=== PATIENT | female | born 1965 | race Two or more races ===

== ENCOUNTER 2022-10-25 03:12 | Inpatient (IN) | payer OTHER ==
[2022-10-25] MEDS ORDERED: Ondansetron 4 MG/2 ML SDV IVPUSH SCH (03:30)
[2022-10-25] MEDS ORDERED: Ondansetron 4 MG/2 ML SDV IVPUSH PRN (04:05)
[2022-10-25] MEDS: fentaNYL 50 MCG/ML SDV IVPUSH PRN ×6 (04:39→19:20)
[2022-10-25] MEDS: Dextrose 5%-Lactated Ringers 1,000 ML IV SCH ×2 (07:18→22:26)
[2022-10-25] MEDS: diphenhydrAMINE 50 MG/ML SDV IVPUSH PRN ×2 (07:22→19:19)
[2022-10-25] MEDS: Verapamil 120 MG Tab.ER PO SCH (11:10)
[2022-10-25] MEDS: Formoterol/Mometasone 200-5 MCG 8.8 GM Inhaler IH SCH ×2 (11:11→20:23)
[2022-10-25] MEDS: Lisinopril 10 MG Tab PO SCH (11:11)
[2022-10-25] MEDS: Pantoprazole 40 MG Vial IV SCH (11:11)
[2022-10-25] MEDS: Venlafaxine 75 MG Cap.ER PO SCH (11:11)
[2022-10-25] MEDS: MVI, Adult with Vitamin K 10 ML, Zinc/Copper/Manganese/Selenium 1 ML in Dextrose 5%-Lac... IV SCH ×3 (11:15)
[2022-10-25] MEDS: buPROPion 150 MG Tab.ER PO SCH (11:15)
[2022-10-25 11:49] LABS: ESTIMATED GFR 105 mL/min (>60)
[2022-10-25] MEDS ORDERED: Nystatin Topical Powder 15 GM Bottle TOP SCH (12:15)
[2022-10-25] MEDS ORDERED: Sodium Ferric Gluconate Cmplex 250 MG in Sodium Chloride 0.9% 100 ML IV ONE (13:30)
[2022-10-25] MEDS: Nystatin Topical Powder 15 GM Bottle TOP SCH (20:25)
[2022-10-25] MEDS: traZODone 50 MG Tab PO SCH (20:26)
[2022-10-25] MEDS: Gabapentin 300 MG Cap PO SCH (20:26)
[2022-10-25] MEDS: Montelukast 10 MG Tab PO SCH (20:26)
[2022-10-25] MEDS: carBAMazepine 200 MG Tab PO SCH (20:26)
[2022-10-25] MEDS ORDERED: buPROPion 150 MG Tab.ER PO SCH (21:00)
[2022-10-26] MEDS: fentaNYL 50 MCG/ML SDV IVPUSH PRN ×2 (02:17→07:19)
[2022-10-26] MEDS: Dextrose 5%-Lactated Ringers 1,000 ML IV SCH (06:28)
[2022-10-26] MEDS ORDERED: Glycopyrrolate 0.2 MG/ML 2 ML SDV IVPUSH ONE ×2 (07:00→09:15)
[2022-10-26] MEDS ORDERED: Midazolam 1 MG/ML 2 ML SDV ONE (07:55)
[2022-10-26] MEDS ORDERED: Propofol 200 MG/20 ML SDV ONE (07:55)
[2022-10-26] MEDS ORDERED: fentaNYL 50 MCG/ML SDV ONE (07:55)
[2022-10-26] MEDS: Pantoprazole 40 MG Vial IV SCH (08:13)
[2022-10-26] MEDS: Nystatin Topical Powder 15 GM Bottle TOP SCH ×2 (08:14→20:11)
[2022-10-26] MEDS: Formoterol/Mometasone 200-5 MCG 8.8 GM Inhaler IH SCH ×2 (08:14→20:12)
[2022-10-26] MEDS ORDERED: HYDROmorphone 2 MG Tab PO PRN (10:23)
[2022-10-26] MEDS: buPROPion 150 MG Tab.ER PO SCH (11:25)
[2022-10-26] MEDS: Lisinopril 10 MG Tab PO SCH (11:25)
[2022-10-26] MEDS: Venlafaxine 75 MG Cap.ER PO SCH (11:25)
[2022-10-26] MEDS: Verapamil 120 MG Tab.ER PO SCH (11:25)
[2022-10-26] MEDS: MVI, Adult with Vitamin K 10 ML, Zinc/Copper/Manganese/Selenium 1 ML in Dextrose 5%-Lac... IV SCH ×3 (11:58)
[2022-10-26] MEDS ORDERED: Sodium Ferric Gluconate Cmplex 250 MG in Sodium Chloride 0.9% 100 ML IV ONE (13:30)
[2022-10-26] MEDS ORDERED: diphenhydrAMINE 25 MG Cap PO PRN (13:32)
[2022-10-26] MEDS: oxyCODONE 5 MG Tab PO PRN ×2 (13:42→20:19)
[2022-10-26] MEDS: Montelukast 10 MG Tab PO SCH (20:10)
[2022-10-26] MEDS: carBAMazepine 200 MG Tab PO SCH (20:10)
[2022-10-26] MEDS: traZODone 50 MG Tab PO SCH (20:11)
[2022-10-26] MEDS: Gabapentin 300 MG Cap PO SCH (20:11)
[2022-10-27] MEDS: Dextrose 5%-Lactated Ringers 1,000 ML IV SCH (01:26)
[2022-10-27 05:07] LABS: ESTIMATED GFR 101 mL/min (>60)
[2022-10-27] MEDS: Formoterol/Mometasone 200-5 MCG 8.8 GM Inhaler IH SCH (08:48)
[2022-10-27] MEDS: Venlafaxine 75 MG Cap.ER PO SCH (08:50)
[2022-10-27] MEDS: buPROPion 150 MG Tab.ER PO SCH (08:50)
[2022-10-27] MEDS: Verapamil 120 MG Tab.ER PO SCH (08:50)
[2022-10-27] MEDS: Nystatin Topical Powder 15 GM Bottle TOP SCH (08:50)
[2022-10-27] MEDS: Lisinopril 10 MG Tab PO SCH (08:50)
[2022-10-27] MEDS: Pantoprazole 40 MG Vial IV SCH (08:50)
== END 2022-10-27 10:00 | disposition home or self-care (01) | DRG 378 ==
LOC: JP.2SS 03:12
PROVIDERS: ADMIT Surgery; ATTEND Surgery
PROC: 0DB68ZX Excision of Stomach, Via Natural or Artificial Opening Endoscopic, Diagnostic (ICD-10-PCS; principal; 2022-10-26)
PROC: 30233N1 Transfusion of Nonautologous Red Blood Cells into Peripheral Vein, Percutaneous Approach (ICD-10-PCS; 2022-10-26)
DX: K29.71 Gastritis, unspecified, with bleeding (principal); D62 Acute posthemorrhagic anemia; Z88.8 Allergy status to other drugs, medicaments and biological substances
CPT/HCPCS: 36415; 36430; 74019; 80053; 82306; 82525; 82607; 82728; 82746; 83735; 84100; 84425; 84590; 84630; 85025; 86850; 86900; 86901; 86920; 86922; 87081; 94640; A9270-GY; C9113; J1200; J2250; J2405; J2704; J2916; J3010; J3490; J7121; P9016